=== PATIENT | male | born 1990 | race Hispanic/Latino ===

== ENCOUNTER 2020-07-25 00:04 | Emergency (ER) | payer SELFPAY | END 2020-07-25 00:30 | LOC: ERS 00:04 | DX: F10.129 Alcohol abuse with intoxication, unspecified (principal) | CPT/HCPCS: 99284 ==

== ENCOUNTER 2020-09-17 10:56 | Emergency (ER) | payer SELFPAY ==
[2020-09-17] MEDS ORDERED: Acetaminophen 325 MG TAB ONE (11:30)
[2020-09-17] MEDS ORDERED: Ibuprofen 800 MG TAB ONE (11:30)
--- NOTE | 2020-09-17 11:31 | RAD ---
Exam: XR Ankle Rt 3 View STANDARD HISTORY: Right ankle pain after injury playing basketball. COMPARISON: None FINDINGS: There is a transverse fracture involving the base of the medial malleolus. Oblique imaging demonstrat es slight separation of fracture fragments measuring 2 to 3 mm. The ankle mortise is congruent. No dislocation is seen. Subcutaneous soft tissue swelling is seen at the lateral aspect of the ankle. IMPRESSION: Fracture medial malleolus with overlying subcutaneous soft tissue swelling.
[2020-09-17] MEDS ORDERED: HYDROcodone/Acetaminophen 7.5/325 mg Tablet ONE (12:18)
== END 2020-09-17 12:33 | disposition home or self-care (01) ==
LOC: ERS 10:56
DX: S82.51XA Displaced fracture of medial malleolus of right tibia, initial encounter for closed fracture (principal); R60.0 Localized edema; W50.0XXA Accidental hit or strike by another person, initial encounter
CPT/HCPCS: 29505